=== PATIENT | male | born 1995 | race Two or more races ===

== ENCOUNTER 2020-10-25 19:16 | Emergency (ER) | payer SELFPAY ==
[~2020-10-25] VITALS: Ht 170.2 cm; Wt 63.6 kg
[2020-10-25 19:30] VITALS: Ht 170.2 cm; Wt 63.6 kg
[2020-10-25 20:49] LABS: BILIRUBIN NEGATIVE (NEGATIVE); KETONE NEGATIVE (NEGATIVE); NITRITE NEGATIVE (NEGATIVE); UROBILINOGEN NORMAL mg/dL (< 2)
[2020-10-25] MEDS ORDERED: DICLOFENAC SODI50 MG PO (21:15)
[2020-10-25] MEDS ORDERED: METHOCARBAMOL500 MG PO (21:15)
[2020-10-25 21:37] LABS: BASOPHILS 0.5 % (0-2); EOSINOPHILS 2.3 % (0-7); HEMATOCRIT 45.3 % (42.0-54.0); HEMOGLOBIN 15.5 g/dL (13.5-17.5); LYMPHOCYTES 31.7 % (15-50); MCH 29.8 pg (26.0-34.0); MCHC 34.2 g/dL (31.0-37.0); MONOCYTES 6.5 % (2-11); PLATELET COUNT 219 10x3/uL (130-400); RBC 5.21 10x6/uL (4.20-6.10); WBC 6.4 10x3/uL (4.8-10.8)
[2020-10-25 21:48] LABS: APTT 25.7 SECONDS (22.8-39.4); INR 1.03 (0.85-1.17); PROTIME 12.5 SECONDS (11.6-15.0)
[2020-10-25 21:53] LABS: CALC OSMOLALITY 278 mosm/kg (275-300); CALCIUM 9.3 mg/dL (8.5-10.1); CARBON DIOXIDE 28.2 mmol/L (21.0-32.0); CHLORIDE - SERUM 105 mmol/L (98-107); CREATININE - SERUM 0.8 mg/dL (0.6-1.3); GLUCOSE 97 mg/dL (74-106); POTASSIUM - SERUM 3.7 mmol/L (3.5-5.1); SODIUM 140 mmol/L (136-145); UREA NITROGEN 13 mg/dL (7-18); eGFR NON AFRICAN AMERICAN > 90 mL/min (90-120)
[2020-10-25 21:59] LABS: ALBUMIN 4.1 g/dL (3.4-5.0); ALKALINE PHOSPHATASE 116 U/L (30-120); ALT (SGPT) 32 U/L (10-68); BILIRUBIN - TOTAL 1.16 mg/dL (0.2-1.3); LIPASE 82 U/L (73-393); PROTEIN - SERUM 7.2 g/dL (6.4-8.2)
[2020-10-25 22:17] VITALS: BP 129/84
== END 2020-10-25 22:17 | disposition home or self-care (01) ==
LOC: D.ER 19:16
PROVIDERS: Family Medicine
DX: S09.90XA Unspecified injury of head, initial encounter (principal); S39.012A Strain of muscle, fascia and tendon of lower back, initial encounter; R10.9 Unspecified abdominal pain; W40.8XXA Explosion of other specified explosive materials, initial encounter; Y93.9 Activity, unspecified; Y92.9 Unspecified place or not applicable